=== PATIENT | female | born 1960 | race Caucasian/White ===

== ENCOUNTER → 2024-08-24 | Outpatient (CLI) | payer OTHER ==
[~2024-08-24] MED LIST: REGADENOSON 0.4 MG/5 ML SYRINGE IV PRN
--- NOTE | 2024-08-24 14:00 | NM ---
EXAMINATION TYPE: NM stress lexiscan cardiolite DATE OF EXAM: 08/24/2024 COMPARISON: NONE CLINICAL INDICATION: Female, 64 years old with history of Z82.49 FAMILY HX OF ISCHEM HEART DIS; perso nal history of prior heart catheterization TECHNIQUE: After the intravenous administration of 10.6 mCi Tc 99m Sestamibi - Cardiolite resting SP ECT images acquired 65 minutes post injection. The patient received 0.4mg Lexiscan, 24.8 mCi Tc 99m Sestamibi - Stress images obtained [address] injection FINDINGS: Review of stress and rest SPECT images demonstrates large defect involving the inferior left ventricu lar wall on stress and rest images suspicious for old infarct. This area is more prominent on stress images versus rest images and thus periinfarct ischemia cannot be excluded. Gated analysis shows keyur mated left ventricular ejection fraction of greater than 70 %. 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 Cannot exclude surrounding ischemia. Consider further investigation with direct catheter angiogram. [facility], , 08/24/2024 1:58 PM
--- NOTE | 2024-08-24 18:27 | CA ---
Lexiscan Nuclear Stress Test Report Name: Fabienne Bustamante Exam Date: 08/24/2024 10:51 Exam Location: [facility] Ht (in): 68 Wt (lb): 230 BSA: 2.17 Ordering Phys: Fay Peraza DO Referring Phys: Bonita Berger Technologist: Rodolfo Singh Age: 64 Gender: F : 1960 Procedure CPT: Indications: Z82.49 FAMILY HX OF ISCHEM HEART DIS ICD-10 Codes: Patient History: PRIOR CATH, FAMILY HX OF HEART DISEASE Medications: SEE LIST,,, Meds past 24 hrs: Pretest Chest Pain: STRESS TEST Lexiscan Protocol Exercise Duration (min:sec): 02:[address] Depressions (mm): Angina Score: Wong Score: Resting HR (bpm): 67 Peak HR (bpm): 90 Resting BP (mmHg): 116 / 70 Peak BP (mmHg): 170 / 71 MPHR: 156 Target HR: 133 % MPHR: 58 METS: 1.0 Total Dose: Peak Dose: Atropine: Double Product: 30641 BP Response: Stress Termination: INFUSION COMPLETE Stress Symptoms: NO SYMPTOMS Stress Summary: ECG ANALYSIS Resting ECG: Stress ECG: CONCLUSIONS Normal heart rate and blood pressure response during Lexiscan infusion T wave inversions inferior laterally during that scan fusion No arrhythmias Separate nuclear report Dr. Tito Reed MD (Electronically Signed) Final Date: 24 August 2024 18:26
== END | disposition home or self-care (01) ==
LOC: RADNMMAIN 08:13
PROVIDERS: ATTEND Family Medicine
DX: R07.9 Chest pain, unspecified (principal); R53.83 Other fatigue; Z82.49 Family history of ischemic heart disease and other diseases of the circulatory system
CPT/HCPCS: 93017; 78452; A9500; J2785